=== PATIENT | female | born 1995 ===

== ENCOUNTER 2018-10-23 11:37 | Emergency (ER) | payer SELFPAY ==
[2018-10-23 12:01] VITALS: BP 123/70
--- NOTE | 2018-10-23 12:06 | Emergency Department Report ---
Blank Doc - Documentation Documentation: This is a 22-year-old female that presents with vaginal discharge and dysuria. Patient denies any pelvic pain or abdominal pain. Patient stated has intermittent pelvic pain. This initial assessment/diagnostic orders/clinical plan/treatment(s) is/are subject to change based on patient's health status, clinical progression and re- assessment by fellow clinical providers in the ED. Further treatment and workup at subsequent clinical providers discretion. Patient/guardians urged not to elope from the ED as their condition may be serious if not clinically assessed and managed. Initial orders include: 1- Patient sent to [facility] for further evaluation and treatment 2- UA 3- wet prep
[2018-10-23 13:24] LABS: Bilirubin,Urine NEG (Negative); Blood,Urine NEG (Negative); Color,Urine Yellow (Yellow); Mucus,Urine FEW /HPF; Protein,Urine <15 mg/dL mg/dL (Negative); Urobilinogen,Urine < 2.0 mg/dL (<2.0)
[2018-10-23 13:37] LABS: HCG Qualitative,Urine Negative (Negative)
== END 2018-10-23 13:22 | disposition left against medical advice (07) ==
LOC: ED 11:37
DX: R10.84 Generalized abdominal pain (principal); Z53.21 Procedure and treatment not carried out due to patient leaving prior to being seen by health care provider
CPT/HCPCS: 81001; 81025